=== PATIENT | male | born 1990 | race Caucasian/White ===

== ENCOUNTER 2018-08-30 18:49 | Emergency (ER) | payer SELFPAY ==
[~2018-08-30] VITALS: Ht 188 cm; Wt 108.9 kg
[2018-08-30 19:19] VITALS: BP 116/63
[2018-08-30] MEDS ORDERED: LIDOCAINE 1% PF 30 ML VIAL. INJ ONE (19:30)
[2018-08-30] MEDS ORDERED: LIDOCAINE 1% Multi-Dose 20 ML VIAL. INJ ONE (19:45)
[2018-08-30] MEDS ORDERED: DIPHTH,PERTUSS(ACELL),TET TOX 0.5 ML DISP.SYRIN. VAX IM ONE ×2 (20:15→20:19)
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
== END 2018-08-30 21:26 | disposition home or self-care (01) ==
LOC: ER 18:49
DX: S61.511A Laceration without foreign body of right wrist, initial encounter (principal); W25.XXXA Contact with sharp glass, initial encounter; Y93.89 Activity, other specified; Y92.89 Other specified places as the place of occurrence of the external cause; Y99.8 Other external cause status
CPT/HCPCS: 12034; 90471; 90715; 99284-25